=== PATIENT | male | born 1945 | race Hispanic/Latino ===

== ENCOUNTER → 2018-03-24 | Outpatient (CLI) | payer MEDICARE ==
[~2018-03-24] MED LIST: IOPAMIDOL 370 MG/ML 200 ML INFUS..BTL INJ ONE; SODIUM CHLORIDE 0.9% 50ML 50 ML ONE
[2018-03-24 13:29] LABS: BLOOD UREA NITROGEN 15 mg/dL (7-26); BUN/CREATININE RATIO 17 (6-25); CREATININE, SERUM 0.87 mg/dL (0.72-1.25); EST GLOMERULAR FILTRATION RATE > 60 ML/MIN (60-)
--- NOTE | 2018-03-24 14:40 | Diagnostic Imaging Report ---
EXAM: CT Abdomen and Pelvis WITH contrast INDICATION: Diffuse abdominal pain, rumbling, diarrhea for 3 weeks \[id number] \S\1350 \S\ABD PAIN COMPARISON: None. TECHNIQUE: Abdomen and pelvis were scanned utilizing a multidetector helical scanner from the lung base to the pubic symphysis after administration of IV contrast. Coronal and sagittal reformations were obtained. Routine protocol was performed. Scan was performed when during portal venous phase. IV CONTRAST: 100 mL of Isovue-370 ORAL CONTRAST: Water COMPLICATIONS: None RADIATION DOSE: Total DLP: 730.4 mGy*cm Estimated effective dose: (DLP x 0.015 x size factor) mSv CTDIvol has been reviewed. It is below the limits set by the Radiation Protocol Committee (RPC). FINDINGS: LINES and TUBES: None. LOWER THORAX: Right middle lobe and lingular calcified granulomas. Lingular 0.7 cm nodule (series 2 image 6) and left lower lobe 0.5 cm nodule (image 9) HEPATOBILIARY: No focal hepatic lesions. No biliary ductal dilation. GALLBLADDER: No radio-opaque stones or sludge. No wall thickening. SPLEEN: No splenomegaly. PANCREAS: No focal masses or ductal dilatation. ADRENALS: No adrenal nodules KIDNEYS/URETERS: Kidneys enhance symmetrically. No hydronephrosis. Right superior pole 1.6 cm, left superior pole 1.1 cm, and left interpolar 1.6 cm cyst. Additional smaller hypodensities are too small to characterize but likely represent cysts. Right superior pole 0.7 cm nonobstructing calculus. GI TRACT: No abnormal distention, wall thickening, or evidence of bowel obstruction. Appendix is normal. PELVIC ORGANS/BLADDER: Prostate mildly enlarged measuring 4 x 4.1 x 5 cm (43 cc). Bladder unremarkable. LYMPH NODES: No lymphadenopathy. VESSELS: Enlarged portal vein measuring 1.7 cm in diameter which can be seen with portal hypertension. No additional findings of portal hypertension. No abdominal aortic aneurysm. PERITONEUM / RETROPERITONEUM: No free air or fluid. BONES: L5 pars defects without spondylolisthesis. SOFT TISSUES: Unremarkable. IMPRESSION: 1. No acute abnormalities in the abdomen and pelvis. 2. Few pulmonary nodules measuring up to 0.7 cm. Recommend follow-up chest CT in 6-12 months according to Fleischner Society 2017 guidelines. Signed by: DR. Ziggy De La Fuente MD on 03/24/2018 2:37 PM
== END ==
LOC: CT 12:33
PROVIDERS: ATTEND Family Medicine
DX: R10.9 Unspecified abdominal pain (principal)
CPT/HCPCS: 36415; 74177; 82565; 84520; Q9967

== ENCOUNTER → 2019-06-29 | Outpatient (CLI) | payer MEDICARE ==
--- NOTE | 2019-06-29 13:34 | Diagnostic Imaging Report ---
Exam: Testicular ultrasound. Clinical History: Testicular pain. Findings: Sonographic evaluation of the testicles. Both testes are normal in echogenicity and size without intratesticular mass. Normal Doppler flow and waveforms are demonstrated in bilateral testicles. There is a large right-sided predominately anechoic hydrocele with septations. Sydnie left sided predominately anechoic hydrocele. No evidence of varicocele. The right epididymis is not visualized. The left epididymis is unremarkable in appearance, measuring up to 0.9 cm. Impression: No sonographic evidence of testicular torsion. Large bilateral hydroceles, mildly complex on the right with septations. The right epididymis is not visualized. Unremarkable left epididymis. Signed by: Dr. Joaquín Hook MD on 06/29/2019 1:31 PM
== END ==
LOC: US 12:32
PROVIDERS: ATTEND Family Medicine
DX: N50.819 Testicular pain, unspecified (principal)
CPT/HCPCS: 76870; 93976

== ENCOUNTER → 2020-04-28 | Outpatient (CLI) | payer MEDICARE, OTHER | LOC: CT 09:50 | PROVIDERS: ATTEND Family Medicine | DX: J84.10 Pulmonary fibrosis, unspecified (principal) | CPT/HCPCS: 71250 ==